=== PATIENT | male | born 1995 | race Caucasian/White ===

== ENCOUNTER → 2018-10-12 | Outpatient (CLI) | payer BC ==
[2018-10-12 13:35] LABS: Basophils % (A) 1 %; Eosinophils # (A) 0.2 k/uL (0-0.7); Eosinophils % (A) 5 %; HGB 14.8 gm/dL (13.0-17.5); Lymphocytes # (A) 1.3 k/uL (1.0-4.8); Lymphocytes % (A) 30 %; MCH 30.8 pg (25.0-35.0); MCHC 33.7 g/dL (31.0-37.0); MCV 91.4 fL (80.0-100.0); Mean Platelet Volume 8.4; Monocytes # (A) 0.3 k/uL (0-1.0); Monocytes % (A) 6 %; Neutrophils # (A) 2.4 k/uL (1.3-7.7); Neutrophils % (A) 54 %; Platelet Count 218 k/uL (150-450); RBC 4.82 m/uL (4.30-5.90); RDW 13.6 % (11.5-15.5); WBC 4.5 k/uL (3.8-10.6)
== END | disposition home or self-care (01) ==
LOC: LABPAT 12:31
PROVIDERS: ATTEND Orthopaedic Surgery
DX: Z01.812 Encounter for preprocedural laboratory examination (principal); D16.22 Benign neoplasm of long bones of left lower limb
CPT/HCPCS: 36415; 80051; 85025

== ENCOUNTER 2018-10-22 10:39 | Day surgery (SDC) | payer BC ==
--- NOTE | 2018-10-21 17:38 | HP ---
HISTORY AND PHYSICAL DATE OF SURGERY: 10/22/2018 Jewel Barboza is a 23-year-old patient seen with a symptomatic osteochondroma, distal aspect of the medial femur. We discussed treatment options. He elected to proceed with excision of the symptomatic osteochondroma. Consent was obtained. PAST MEDICAL HISTORY: Noncontributory. PAST SURGICAL HISTORY: Some type of arm surgery. DAILY MEDICATIONS: None. ALLERGIES: NONE. SOCIAL HISTORY: Smokes half a pack of cigarettes daily. PHYSICAL EVALUATION OF THE LEFT KNEE: He had a palpable bony mass along the distal medial femur. Tender to palpation. No ecchymosis or hyperemia in the area. Ligaments stable. Hip rotation without pain. Distal neurovascular exam intact. Left knee radiographs revealed an osteochondroma along the distal medial femur. IMPRESSION: 1. Left distal medial femur symptomatic osteochondroma. 2. Tobacco use. PLAN: Excision osteochondroma, left distal femur. MMODL / IJN: [id number] /
[~2018-10-22 10:39] MED LIST: DEXAMETHASONE SOD PHOSPHATE 10 MG/ML 1 ML VIAL IV ONE; HYDROmorphone 0.5 MG/0.5 ML SYRINGE IVP PRN; LACTATED RINGERS 1,000 ML IV SCH; LIDOCAINE 1% 20 ML VIAL (10MG/ML) FOR IV START INTRADERMA PRN; ONDANSETRON 4 MG/2 ML VIAL IVP ONE
[2018-10-22] MEDS ORDERED: SCOPOLAMINE 1.5MG/72HR PATCH TRANSDERM ONE (11:00)
[2018-10-22] MEDS ORDERED: fentaNYL (PF) 50 MCG/ML 2 ML AMP ONE (11:46)
[2018-10-22] MEDS ORDERED: LIDOCAINE 1% INJ 10MG/ML (20 ML MDV) ONE (11:46)
[2018-10-22] MEDS ORDERED: KETOROLAC 30 MG/ML 1 ML VIAL ONE (11:46)
[2018-10-22] MEDS ORDERED: MIDAZOLAM 2 MG/2 ML VIAL ONE (11:46)
[2018-10-22] MEDS ORDERED: PROPOFOL 10 MG/ML 20 ML VIAL IV ONE (11:46)
[2018-10-22] MEDS ORDERED: BUPIVACAINE (PF) 0.5% 30 ML VIAL SQ ONE ×2 (12:12→12:30)
[2018-10-22] MEDS ORDERED: ceFAZolin 1,000 MG in SODIUM CHLORIDE 0.9% 1,000 ML IRRIGATION ONE (12:30)
--- NOTE | 2018-10-22 12:42 | P.OP ---
Date of Procedure: 10/22/18 Preoperative Diagnosis: Symptomatic osteochondroma left distal femur Postoperative Diagnosis: Same Procedure(s) Performed: Excision osteochondroma left distal femur Anesthesia: JOHN local Surgeon: Siva Rodriguez Supervisor Mending #1: Tristin Rivera Estimated Blood Loss (ml): 5 Pathology: none sent Condition: stable Disposition: PACU Indications for Procedure: 23-year-old patient seen with symptomatic left distal femur osteochondroma. After treatment options were discussed he elected to proceed with excision of his symptomatic osteochondroma. Operative Findings: See description of the procedure Description of Procedure: The patient was taken to the operative suite. The patient underwent a general anesthetic by the department of anesthesia. The patient had received preoperative IV antibiotics. A well-padded tourniquet was placed proximal left thigh. The left lower extremity was prepped and draped in the normal sterile orthopedic fashion. We elevated the extremity and inflated the tourniquet to 300. I now made an incision over the area of the osteochondroma measuring approximately 3 inches sharply through skin. I dissected to the VMO muscle where the osteochondroma were was laying beneath. I then split the fibers of the VMO bluntly carefully dissecting to the osteochondroma. The osteochondroma was now exposed. It appeared to be a benign osteochondroma. It was now excised utilizing an osteotome. The area of the stump was fairly smooth. I did use aqua mantis cautery to control some of the mild bleeding at the muscle level. There was no substantial bleeding noted at the bone resection site. The wound was now irrigated. The deep area was infiltrated with half percent plain Marcaine. The subcutaneous soft tissues were approximated with 2-0 Vicryl. The subcutaneous area was infiltrated with half percent plain Marcaine. The skin was repaired with a running subcuticular suture followed by Dermabond. I applied sterile dressings. The tourniquet was released with good capillary fill noted the entire extremity. The patient was awakened and transferred to a bed and recovery stable condition. Patient tolerated procedure well. Chadwick BERKOWITZ assisted the procedure.
[2018-10-22 12:52] VITALS: TEMP 97.6
[2018-10-22 13:03] VITALS: RESP 18
[2018-10-22 13:41] VITALS: BP 131/79; PULSE 56
== END 2018-10-22 14:12 | disposition home or self-care (01) ==
LOC: OR 10:39
PROVIDERS: ATTEND Orthopaedic Surgery
DX: D16.22 Benign neoplasm of long bones of left lower limb (principal); F17.210 Nicotine dependence, cigarettes, uncomplicated; Z79.899 Other long term (current) drug therapy
CPT/HCPCS: 27355; J2250; J1100; J2405; J0690; J2001; J3010; J1885; J2704